=== PATIENT | male | born 1970 | race Caucasian/White ===

== ENCOUNTER → 2017-12-25 | Outpatient (CLI) | payer BC ==
[2017-12-25 08:54] LABS: Basophils % (A) 1 %; Eosinophils # (A) 0.5 k/uL (0-0.7); Eosinophils % (A) 6 %; HCT 50.1 % (39.0-53.0); HGB 16.6 gm/dL (13.0-17.5); Lymphocytes % (A) 24 %; MCH 31.2 pg (25.0-35.0); MCHC 33.1 g/dL (31.0-37.0); MCV 94.2 fL (80.0-100.0); Mean Platelet Volume 6.9; Monocytes # (A) 0.6 k/uL (0-1.0); Monocytes % (A) 7 %; Neutrophils # (A) 4.8 k/uL (1.3-7.7); Neutrophils % (A) 60 %; Platelet Count 242 k/uL (150-450); RBC 5.32 m/uL (4.30-5.90); RDW 13.1 % (11.5-15.5); WBC 8.1 k/uL (3.8-10.6)
[2017-12-25 09:17] LABS: ALT 48 U/L (21-72); AST 27 U/L (17-59); Albumin 4.2 g/dL (3.5-5.0); Alkaline Phosphatase 98 U/L (38-126); Anion Gap 9 mmol/L; Blood Urea Nitrogen 17 mg/dL (9-20); Calcium 10.1 mg/dL (8.4-10.2); Carbon Dioxide 27 mmol/L (22-30); Chloride 106 mmol/L (98-107); Cholesterol 185 mg/dL (<200); Glucose 112 mg/dL (74-99); HDL Cholesterol 44 mg/dL (40-60); LDL Cholesterol,Calculated 94 mg/dL (0-99); Potassium 4.6 mmol/L (3.5-5.1); Sodium 142 mmol/L (137-145); Total Bilirubin 0.3 mg/dL (0.2-1.3); Total Protein 6.9 g/dL (6.3-8.2); Triglycerides 234 mg/dL (<150)
[2017-12-25 18:37] LABS: Hemoglobin A1C 5.8 % (4.0-6.0)
== END | disposition home or self-care (01) ==
LOC: LABWHC1 08:22
PROVIDERS: ATTEND Family Medicine
DX: L50.8 Other urticaria (principal); R73.01 Impaired fasting glucose; J45.20 Mild intermittent asthma, uncomplicated; E78.5 Hyperlipidemia, unspecified
CPT/HCPCS: 36415; 80053; 80061; 82607; 83036; 84443; 85025

== ENCOUNTER 2018-02-12 10:38 | Observation (INO) | payer BC ==
[2018-02-12] MEDS ORDERED: NITROGLYCERIN OINT 1 INCH/GM PACKET TOPICAL STA (11:00)
[2018-02-12] MEDS ORDERED: ASPIRIN 81 MG PO STA (11:00)
--- NOTE | 2018-02-12 11:03 | ED ---
General Adult HPI - General Chief complaint: Chest Pain Stated complaint: chest tightness Time Seen by Provider: 02/12/18 10:56 Source: patient, RN notes reviewed Mode of arrival: ambulatory Limitations: no limitations - History of Present Illness Initial comments: Patient is a pleasant 47-year-old male presenting to the emergency Department with complaints of chest discomfort. Onset of symptoms was around 10 this morning. Patient has discomfort in his chest described as tightness. There is no radiation. Patient does have some associated dyspnea and nausea and sweating. No history of similar symptoms previously. Patient was at rest at onset. Discomfort is somewhat severe rated 7/10. - Related Data Home Medications Medication Instructions Recorded Confirmed Albuterol Sulfate [Proair Hfa] 1 - 2 puff INHALATION RT-Q6H PRN 02/12/18 Atorvastatin [Lipitor] 20 mg PO HS 02/12/18 02/12/18 Budesonide/Formoterol Fumarate 2 puff INHALATION RT-BID 02/12/18 02/12/18 [Symbicort 160-4.5 Mcg Inhaler] HYDROcodone/APAP 10-325MG [[place] 1 tab PO TID PRN 02/12/18 02/12/18 10-325] Montelukast [Singulair] 10 mg PO HS 02/12/18 02/12/18 Omalizumab [Xolair] 375 mg SQ Q14D 02/12/18 02/12/18 Allergies Allergy/AdvReac Type Severity Reaction Status Date / Time No Known Allergies Allergy Verified 02/12/18 11:13 Review of Systems ROS Statement: Those systems with pertinent positive or pertinent negative responses have been documented in the HPI. ROS Other: All systems not noted in ROS Statement are negative. Constitutional: Denies: fever Eyes: Denies: eye pain ENT: Denies: ear pain Respiratory: Reports: dyspnea. Denies: cough Cardiovascular: Reports: chest pain Endocrine: Denies: fatigue Gastrointestinal: Reports: nausea. Denies: abdominal pain Genitourinary: Denies: dysuria Musculoskeletal: Denies: back pain Skin: Denies: rash Neurological: Denies: weakness Past Medical History Past Medical History: Asthma, Hyperlipidemia Additional Past Medical History / Comment(s): pre-diabetic History of Any Multi-Drug Resistant Organisms: None Reported Past Surgical History: Appendectomy, Cholecystectomy Past Psychological History: No Psychological Hx Reported Smoking Status: Current every day smoker Past Alcohol Use History: Occasional Past Drug Use History: None Reported General Exam Limitations: no limitations General appearance: alert, in no apparent distress Head exam: Present: atraumatic Eye exam: Present: normal appearance, PERRL ENT exam: Present: normal oropharynx Neck exam: Present: normal inspection Respiratory exam: Present: normal lung sounds bilaterally. Absent: chest wall tenderness Cardiovascular Exam: Present: regular rate, normal rhythm, normal heart sounds Expanded Peripheral pulses: 2+: Radial (R), Radial (L), Dorsalis Pedis (R), Dorsalis Pedis (L) GI/Abdominal exam: Present: soft. Absent: tenderness Extremities exam: Present: normal inspection. Absent: pedal edema, calf tenderness Neurological exam: Present: alert Psychiatric exam: Present: normal affect, normal mood Skin exam: Present: normal color Course Vital Signs 02/12/18 02/12/18 02/12/18 10:45 10:58 11:29 Temperature 97.9 F Pulse Rate 65 65 Pulse Rate [ 55 L Sweet Dough Mixer ] Respiratory 18 16 Rate Blood Pressure 127/76 125/68 O2 Sat by Pulse 99 98 Oximetry EKG Findings - EKG Comments: EKG Findings:: Sinus bradycardia 54. [place] 156. QRS 110. QT 420. QTc 405. Normal axis. Incomplete right bundle-branch block. No acute ST change. Medical Decision Making - Medical Decision Making Patient reevaluated and resting comfortably in bed. Discomfort has improved to approximately 3/10. Patient updated on results and plan. Case was discussed in detail with Dr. Zimmer, who will admit her patient with cardiology consult and echo and subcutaneous heparin. - Lab Data Result diagrams: 02/12/18 10:50 02/12/18 10:50 Lab Results 02/12/18 02/12/18 02/12/18 Range/Units 10:50 10:50 10:50 WBC 10.9 H (3.8-10.6) k/uL RBC 5.45 (4.30-5.90) m/uL Hgb 17.0 (13.0-17.5) gm/dL Hct 50.8 (39.0-53.0) % MCV 93.2 (80.0-100.0) fL MCH 31.2 (25.0-35.0) pg MCHC 33.5 (31.0-37.0) g/dL RDW 12.8 (11.5-15.5) % Plt Count 264 (150-450) k/uL Neutrophils % 63 % Lymphocytes % 22 % Monocytes % 8 % Eosinophils % 4 % Basophils % 1 % Neutrophils # 6.9 (1.3-7.7) k/uL Lymphocytes # 2.4 (1.0-4.8) k/uL Monocytes # 0.9 (0-1.0) k/uL Eosinophils # 0.4 (0-0.7) k/uL Basophils # 0.1 (0-0.2) k/uL PT (9.0-12.0) sec INR (<1.2) APTT (22.0-30.0) sec D-Dimer (<0.60) mg/L FEU Sodium 139 (137-145) mmol/L Potassium 4.2 (3.5-5.1) mmol/L Chloride 106 (98-107) mmol/L Carbon Dioxide 24 (22-30) mmol/L Anion Gap 9 mmol/L BUN 17 (9-20) mg/dL Creatinine 0.80 (0.66-1.25) mg/dL Est GFR (CKD-EPI)AfAm >90 (>60 ml/min/1.73 sqM) Est GFR (CKD-EPI)NonAf >90 (>60 ml/min/1.73 sqM) Glucose 117 H (74-99) mg/dL Calcium 9.3 (8.4-10.2) mg/dL Magnesium 2.0 (1.6-2.3) mg/dL Total Bilirubin 0.7 (0.2-1.3) mg/dL AST 183 H (17-59) U/L ALT 145 H (21-72) U/L Alkaline Phosphatase 111 (38-126) U/L Total Creatine Kinase 177 H (55-170) U/L CK-MB (CK-2) 1.6 (0.0-2.4) ng/mL CK-MB (CK-2) Rel Index 0.9 Troponin I <0.012 (0.000-0.034) ng/mL Total Protein 7.1 (6.3-8.2) g/dL Albumin 4.2 (3.5-5.0) g/dL 02/12/18 Range/Units 10:50 WBC (3.8-10.6) k/uL RBC (4.30-5.90) m/uL Hgb (13.0-17.5) gm/dL Hct (39.0-53.0) % MCV (80.0-100.0) fL MCH (25.0-35.0) pg MCHC (31.0-37.0) g/dL RDW (11.5-15.5) % Plt Count (150-450) k/uL Neutrophils % % Lymphocytes % % Monocytes % % Eosinophils % % Basophils % % Neutrophils # (1.3-7.7) k/uL Lymphocytes # (1.0-4.8) k/uL Monocytes # (0-1.0) k/uL Eosinophils # (0-0.7) k/uL Basophils # (0-0.2) k/uL PT 9.8 (9.0-12.0) sec INR 1.0 (<1.2) APTT 22.8 (22.0-30.0) sec D-Dimer 0.36 (<0.60) mg/L FEU Sodium (137-145) mmol/L Potassium (3.5-5.1) mmol/L Chloride (98-107) mmol/L Carbon Dioxide (22-30) mmol/L Anion Gap mmol/L BUN (9-20) mg/dL Creatinine (0.66-1.25) mg/dL Est GFR (CKD-EPI)AfAm (>60 ml/min/1.73 sqM) Est GFR (CKD-EPI)NonAf (>60 ml/min/1.73 sqM) Glucose (74-99) mg/dL Calcium (8.4-10.2) mg/dL Magnesium (1.6-2.3) mg/dL Total Bilirubin (0.2-1.3) mg/dL AST (17-59) U/L ALT (21-72) U/L Alkaline Phosphatase (38-126) U/L Total Creatine Kinase (55-170) U/L CK-MB (CK-2) (0.0-2.4) ng/mL CK-MB (CK-2) Rel Index Troponin I (0.000-0.034) ng/mL Total Protein (6.3-8.2) g/dL Albumin (3.5-5.0) g/dL - Radiology Data Radiology results: image reviewed (Chest x-ray shows no acute process) Disposition Clinical Impression: Chest pain Disposition: ADMITTED IP TO THIS HOSP Is patient prescribed a controlled substance at d/c from ED?: No Referrals: Linda Zimmer MD [Primary Care Provider] - 1-2 days Decision Time: 12:38
[2018-02-12 11:13] LABS: Basophils # (A) 0.1 k/uL (0-0.2); Basophils % (A) 1 %; Eosinophils # (A) 0.4 k/uL (0-0.7); Eosinophils % (A) 4 %; HCT 50.8 % (39.0-53.0); Lymphocytes # (A) 2.4 k/uL (1.0-4.8); Lymphocytes % (A) 22 %; MCH 31.2 pg (25.0-35.0); MCHC 33.5 g/dL (31.0-37.0); MCV 93.2 fL (80.0-100.0); Mean Platelet Volume 7.2; Monocytes # (A) 0.9 k/uL (0-1.0); Monocytes % (A) 8 %; Neutrophils # (A) 6.9 k/uL (1.3-7.7); Neutrophils % (A) 63 %; Platelet Count 264 k/uL (150-450); RBC 5.45 m/uL (4.30-5.90); RDW 12.8 % (11.5-15.5); WBC 10.9 k/uL (3.8-10.6)
[2018-02-12] MEDS ORDERED: NITROGLYCERIN SL TABS 0.4 MG TAB SUBLINGUAL STA (11:21)
--- NOTE | 2018-02-12 11:23 | XR ---
EXAMINATION TYPE: XR chest 2V DATE OF EXAM: 02/12/2018 HISTORY: Chest Pain. REFERENCE: NONE. FINDINGS: The lungs are clear. Pleural space are clear. The heart is not enlarged. IMPRESSION: NORMAL CHEST.
[2018-02-12 11:25] LABS: ALT 145 U/L (21-72); AST 183 U/L (17-59); Albumin 4.2 g/dL (3.5-5.0); Alkaline Phosphatase 111 U/L (38-126); Anion Gap 9 mmol/L; Blood Urea Nitrogen 17 mg/dL (9-20); Calcium 9.3 mg/dL (8.4-10.2); Carbon Dioxide 24 mmol/L (22-30); Chloride 106 mmol/L (98-107); Glucose 117 mg/dL (74-99); Potassium 4.2 mmol/L (3.5-5.1); Sodium 139 mmol/L (137-145); Total Bilirubin 0.7 mg/dL (0.2-1.3); Total Protein 7.1 g/dL (6.3-8.2)
[2018-02-12 11:28] LABS: D-Dimer 0.36 mg/L FEU (<0.60); Partial Thromboplastin Time 22.8 sec (22.0-30.0); Prothrombin Time 9.8 sec (9.0-12.0)
[2018-02-12 11:38] LABS: Creatine Kinase 177 U/L (55-170)
[2018-02-12 11:49] LABS: Creatine Kinase MB 1.6 ng/mL (0.0-2.4); Troponin I <0.012 ng/mL (0.000-0.034)
[2018-02-12] MEDS ORDERED: NITROGLYCERIN SL TABS 0.4 MG TAB SUBLINGUAL PRN (12:38)
[2018-02-12] MEDS: HYDROcodone/APAP 10-325MG 1 EACH TAB PO PRN ×2 (15:47→23:07)
[2018-02-12] MEDS: HEPARIN SODIUM,PORCINE 5,000 UNIT/ML 1 ML VIAL SQ SCH ×2 (16:29→23:08)
[2018-02-12 17:14] LABS: Creatine Kinase 131 U/L (55-170)
[2018-02-12 17:27] LABS: Creatine Kinase MB 1.2 ng/mL (0.0-2.4); Troponin I <0.012 ng/mL (0.000-0.034)
--- NOTE | 2018-02-12 18:53 | P.HPIM ---
History of Present Illness H&P Date: 02/12/18 Chief Complaint: chest pain This is a 47-year-old pleasant gentleman well known to my practice. He has underlying history of mild persistent asthma on Xolair, hyperlipidemia, chronic idiopathic urticaria, and ingrown toenail with recent nail surgery done with wedge resection and ablation performed by myself on 02/11/2018 in the clinic. He complains of two-week history of upper respiratory tract infection with clear sputum, no fever no chills, however he now comes into the emergency room with chest pain with pressure like with him sitting in his chest. Patient denies any wheezing, cough is improving. Chest pain started at 10 in the morning, while patient was resting in home this accompanied by nausea, lightheadedness and prickly sweats. He subsequently was seen in emergency room , EKG shows incomplete right bundle branch block with normal sinus rhythm, troponins are negative, there is no acute ST-T wave changes noted and EKG. Patient was subsequently admitted for the chest pain, no prior history of CAD in the past no recent cardiac workup including stress test or echocardiogram Review of Systems Constitutional: Reports as per HPI, Denies anorexia, Denies chills, Denies chronic headaches, Denies chronic pain, Denies daytime sleepiness, Denies fatigue, Denies fever, Denies lethargy, Denies malaise, Denies night sweats, Denies poor appetite, Denies sweats, Denies weakness, Denies weight gain, Denies weight loss Ears, nose, mouth and throat: Reports as per HPI Cardiovascular: Reports as per HPI, Reports chest pain, Denies claudication, Denies decreased exercise tolerance, Denies dyspnea on exertion, Denies edema, Denies high blood pressure, Denies irregular heart beat, Denies leg edema, Denies lightheadedness, Denies orthopnea, Denies palpitations, Denies paroxysmal nocturnal dyspnea, Denies phlebitis, Denies rapid heart beat, Denies shortness of breath, Denies syncope Respiratory: Reports as per HPI, Reports cough, Denies congestion, Denies cough with sputum, Denies dyspnea, Denies excessive sputum, Denies hemoptysis, Denies home oxygen, Denies pain, Denies pain on inspiration, Denies pleurisy, Denies respiratory infections, Denies sleep apnea, Denies snoring, Denies wheezing Gastrointestinal: Reports as per HPI, Denies abdominal pain, Denies belching, Denies bloating, Denies BRBPR, Denies change in bowel habits, Denies coffee ground emesis, Denies constipation, Denies diarrhea, Denies dyspepsia, Denies early satiety, Denies excessive gas, Denies heartburn, Denies hematemesis, Denies hematochezia, Denies indigestion, Denies jaundice, Denies lactose intolerance, Denies loss of appetite, Denies melena, Denies nausea, Denies vomiting Genitourinary: Reports as per HPI, Denies decreased libido, Denies difficulties fathering child, Denies discharge, Denies dysuria, Denies erectile dysfunction, Denies flank pain, Denies genital pain, Denies genital sores, Denies hematuria, Denies impotence, Denies incontinence, Denies kidney stones, Denies nocturia, Denies polyuria, Denies testicular lump, Denies testicular pain, Denies urinary frequency, Denies urinary hesitancy, Denies urinary retention Musculoskeletal: Reports as per HPI, Denies arm numbness/tingling, Denies atrophy, Denies fractures, Denies frequent falls, Denies gait dysfunction, Denies hot joints, Denies leg numbness/tingling, Denies limitation of motion, Denies loss of height, Denies low back pain, Denies morning stiffness, Denies muscle cramps, Denies muscle weakness, Denies myalgias, Denies neck pain, Denies neck stiffness, Denies prior amputations, Denies redness of joints, Denies shooting arm pain, Denies shooting leg pain Integumentary: Reports as per HPI, Denies acne, Denies boils, Denies brittle nails, Denies change in hair/nails, Denies color changes, Denies darkening of skin, Denies depigmentation, Denies dryness, Denies foot/leg ulcers, Denies growths, Denies hirsutism, Denies lesions, Denies onychomycosis, Denies pruritus , Denies rash, Denies sores, Denies striae, Denies unusual bruising, Denies wounds Neurological: Reports as per HPI, Denies aphasia, Denies ataxia, Denies balance difficulties, Denies burning pain, Denies change in mentation, Denies change in smell/taste, Denies change in speech, Denies confusion, Denies convulsions, Denies double vision, Denies gait dysfunction, Denies head injury, Denies headaches, Denies hearing difficulties, Denies lack of coordination, Denies loss of vision, Denies memory loss, Denies migraines, Denies motor disturbance, Denies numbness, Denies paralysis, Denies paresthesias, Denies seizures, Denies sensory deficit, Denies spasticity, Denies syncope, Denies tic, Denies tingling , Denies transient paralysis, Denies tremors, Denies vertigo, Denies weakness, Denies visual changes Psychiatric: Reports as per HPI Endocrine: Reports as per HPI, Denies cold intolerance, Denies deepening of the voice, Denies excessive sweating, Denies excessive thirst, Denies fatigue, Denies flushing, Denies heat intolerance, Denies high blood sugars, Denies increase in ring/shoe/hat size, Denies low blood sugars, Denies nocturia, Denies palpitations, Denies polydipsia, Denies polyphagia, Denies polyuria, Denies proptosis, Denies recent glucocorticoid use, Denies thyroid mass, Denies weight change Hematologic/Lymphatic: Reports as per HPI, Denies easy bleeding, Denies easy bruising, Denies lymphadenopathy, Denies lymphedema, Denies thrombophilia Allergic/Immunologic: Reports as per HPI, Reports allergic rhinitis, Reports seasonal allergies, Reports urticaria Past Medical History Past Medical History: Asthma, Hyperlipidemia Additional Past Medical History / Comment(s): pre-diabetic History of Any Multi-Drug Resistant Organisms: None Reported Past Surgical History: Appendectomy, Cholecystectomy Additional Past Surgical History / Comment(s): part of nailbed removed on bilateral Great toe for ingrown toenails on 02/11/18 Past Psychological History: No Psychological Hx Reported Smoking Status: Current every day smoker Past Alcohol Use History: Occasional Past Drug Use History: None Reported - Past Family History Father History Unknown: Yes (mother from accidental from alcoholism and carbon monoxide poisoning in her car, father has diabetes mellitus no brothers no sisters, 2 daughters healthy no signs) Medications and Allergies Home Medications Medication Instructions Recorded Confirmed Type Albuterol Sulfate [Proair Hfa] 1 - 2 puff INHALATION RT-Q6H PRN 02/12/18 History Atorvastatin [Lipitor] 20 mg PO HS 02/12/18 02/12/18 History Budesonide/Formoterol Fumarate 2 puff INHALATION RT-BID 02/12/18 02/12/18 History [Symbicort 160-4.5 Mcg Inhaler] HYDROcodone/APAP 10-325MG [[place] 1 tab PO TID PRN 02/12/18 02/12/18 History 10-325] Montelukast [Singulair] 10 mg PO HS 02/12/18 02/12/18 History Omalizumab [Xolair] 375 mg SQ Q14D 02/12/18 02/12/18 History Allergies Allergy/AdvReac Type Severity Reaction Status Date / Time No Known Allergies Allergy Verified 02/12/18 11:13 Physical Exam Vitals: Vital Signs Temp Pulse Pulse Pulse Resp BP BP 02/12/18 13:37 02/12/18 13:07 97.5 F L 49 L 16 131/68 02/12/18 12:57 97.7 F 59 L 18 120/74 02/12/18 11:29 65 16 125/68 02/12/18 10:58 55 L 02/12/18 10:45 97.9 F 65 18 127/76 Pulse Ox 02/12/18 13:37 98 02/12/18 13:07 99 02/12/18 12:57 98 02/12/18 11:29 98 02/12/18 10:58 02/12/18 10:45 99 Intake and Output 02/11/18 02/12/18 02/12/18 22:59 06:59 14:59 Other: Voiding Method Toilet Weight 102.1 kg - Constitutional General appearance: average body habitus, cooperative, no acute distress - EENT Eyes: anicteric sclerae, EOMI, PERRLA, dentition normal, normal appearance ENT: hearing grossly normal, NA/AT, normal oropharynx - Respiratory Respiratory: bilateral: CTA, negative: dullness, rales, rhonchi, wheezing, prolonged expiration, prolonged inspiration - Cardiovascular Rhythm: regular Heart sounds: normal: S1, S2 Abnormal Heart Sounds: no systolic murmur, no diastolic murmur, no rub, no S3 Gallop, no S4 Gallop, no click, no other - Gastrointestinal General gastrointestinal: soft - Integumentary Integumentary: decreased turgor, normal - Neurologic Neurologic: CNII-XII intact - Musculoskeletal Musculoskeletal: gait normal, strength equal bilaterally - Psychiatric Psychiatric: A&O x's 3, appropriate affect, intact judgment & insight Results CBC & Chem 7: 02/12/18 10:50 02/12/18 10:50 Labs: Abnormal Lab Results - Last 24 Hours (Table) 02/12/18 02/12/18 02/12/18 Range/Units 10:50 10:50 10:50 WBC 10.9 H (3.8-10.6) k/uL Glucose 117 H (74-99) mg/dL AST 183 H (17-59) U/L ALT 145 H (21-72) U/L Total Creatine Kinase 177 H (55-170) U/L Laboratory Results WBC 10.9 k/uL (3.8-10.6) H 02/12/18 10:50 RBC 5.45 m/uL (4.30-5.90) 02/12/18 10:50 Hgb 17.0 gm/dL (13.0-17.5) 02/12/18 10:50 Hct 50.8 % (39.0-53.0) 02/12/18 10:50 MCV 93.2 fL (80.0-100.0) 02/12/18 10:50 MCH 31.2 pg (25.0-35.0) 02/12/18 10:50 MCHC 33.5 g/dL (31.0-37.0) 02/12/18 10:50 RDW 12.8 % (11.5-15.5) 02/12/18 10:50 Plt Count 264 k/uL (150-450) 02/12/18 10:50 Neutrophils % 63 % 02/12/18 10:50 Lymphocytes % 22 % 02/12/18 10:50 Monocytes % 8 % 02/12/18 10:50 Eosinophils % 4 % 02/12/18 10:50 Basophils % 1 % 02/12/18 10:50 Neutrophils # 6.9 k/uL (1.3-7.7) 02/12/18 10:50 Lymphocytes # 2.4 k/uL (1.0-4.8) 02/12/18 10:50 Monocytes # 0.9 k/uL (0-1.0) 02/12/18 10:50 Eosinophils # 0.4 k/uL (0-0.7) 02/12/18 10:50 Basophils # 0.1 k/uL (0-0.2) 02/12/18 10:50 PT 9.8 sec (9.0-12.0) 02/12/18 10:50 INR 1.0 (<1.2) 02/12/18 10:50 APTT 22.8 sec (22.0-30.0) 02/12/18 10:50 D-Dimer 0.36 mg/L FEU (<0.60) 02/12/18 10:50 Sodium 139 mmol/L (137-145) 02/12/18 10:50 Potassium 4.2 mmol/L (3.5-5.1) 02/12/18 10:50 Chloride 106 mmol/L (98-107) 02/12/18 10:50 Carbon Dioxide 24 mmol/L (22-30) 02/12/18 10:50 Anion Gap 9 mmol/L 02/12/18 10:50 BUN 17 mg/dL (9-20) 02/12/18 10:50 Creatinine 0.80 mg/dL (0.66-1.25) 02/12/18 10:50 Est GFR (CKD-EPI)AfAm >90 (>60 ml/min/1.73 sqM) 02/12/18 10:50 Est GFR (CKD-EPI)NonAf >90 (>60 ml/min/1.73 sqM) 02/12/18 10:50 Glucose 117 mg/dL (74-99) H 02/12/18 10:50 Calcium 9.3 mg/dL (8.4-10.2) 02/12/18 10:50 Magnesium 2.0 mg/dL (1.6-2.3) 02/12/18 10:50 Total Bilirubin 0.7 mg/dL (0.2-1.3) 02/12/18 10:50 AST 183 U/L (17-59) H 02/12/18 10:50 ALT 145 U/L (21-72) H 02/12/18 10:50 Alkaline Phosphatase 111 U/L (38-126) 02/12/18 10:50 Total Creatine Kinase 131 U/L (55-170) 02/12/18 16:46 CK-MB (CK-2) 1.2 ng/mL (0.0-2.4) 02/12/18 16:46 CK-MB (CK-2) Rel Index 0.9 02/12/18 16:46 Troponin I <0.012 ng/mL (0.000-0.034) 02/12/18 16:46 Total Protein 7.1 g/dL (6.3-8.2) 02/12/18 10:50 Albumin 4.2 g/dL (3.5-5.0) 02/12/18 10:50 Lipase 125 U/L (23-300) 02/12/18 10:50 Thrombosis Risk Factor Assmnt - Choose All That Apply Any of the Below Risk Factors Present?: Yes Each Factor Represents 1 point: Age 41-60 years Thrombosis Risk Factor Assessment Total Risk Factor Score: 1 Thrombosis Risk Factor Assessment Level: Low Risk Assessment and Plan Plan: 1. Chest pain possibility of unstable angina with abnormal EKG on presentation mainly from incomplete right bundle branch block, with history of risk factors to include smoking and hyperlipidemia. Patient would be monitored for the next 23 hours with serial cardiac biomarkers troponins and EKG. Cardiology to see in consult. Patient is on Nitropaste, and subcu heparin, and aspirin 2. Upper respiratory tract infection with costochondritis secondary to cough, could aggravate the above chest pain, on maintenance Symbicort Singulair and Xolair. We'll going to provide nebulized albuterol and Atrovent along with budesonide no oral antibiotics needed symptoms are resolving patient might need a few doses of steroids while here. 3. Chronic idiopathic urticaria on Xolair 4. History of mild persistent asthma on maintenance Xolair Symbicort and Singulair possible could be aggravated with mild exacerbation secondary to recent upper respiratory infection 5. Hyperlipidemia on Lipitor 20 6. Tobacco use, counseled regarding permanent tobacco cessation 7. Transaminitis acute, new, patient would have hepatitis panel, monitor liver tests, and abdominal ultrasound lipase 8. GI prophylaxis with Pepcid, DVT prophylaxis with Lovenox 9. Headache related to Nitropaste use, patient has hydrocodone and aspirin 10. Recent nail resection wedge on bilateral great toes on 02/11/2018, doing okay, short-term use of Eucha medication dispensed a 24
[2018-02-12] MEDS: NITROGLYCERIN OINT 1 INCH/GM PACKET TOPICAL SCH (19:32)
[2018-02-12] MEDS ORDERED: ACETAMINOPHEN TAB 325 MG TAB PO PRN (19:58)
[2018-02-12] MEDS: ONDANSETRON 4 MG/2 ML VIAL IVP PRN (20:17)
[2018-02-12] MEDS: IPRATROPIUM-ALBUTEROL 3 ML NEB INHALATION PRN (20:25)
[2018-02-12] MEDS: BUDESONIDE 0.5 MG/2 ML NEBU INHALATION SCH (20:25)
[2018-02-12] MEDS ORDERED: MONTELUKAST 10 MG TAB PO SCH (21:00)
[2018-02-12] MEDS ORDERED: ATORVASTATIN 20 MG TAB PO SCH (21:00)
[2018-02-12 22:50] LABS: Hepatitis A Antibody IgM Non-Reactive (Non-Reactive); Hepatitis B Core IgM Non-Reactive (Non-Reactive)
[2018-02-12 23:33] LABS: Creatine Kinase 114 U/L (55-170)
[2018-02-12 23:47] LABS: Creatine Kinase MB 1.1 ng/mL (0.0-2.4); Troponin I <0.012 ng/mL (0.000-0.034)
[2018-02-13] MEDS: NITROGLYCERIN OINT 1 INCH/GM PACKET TOPICAL SCH ×2 (02:17→05:10)
[2018-02-13 03:02] LABS: Cholesterol 146 mg/dL (<200); HDL Cholesterol 45 mg/dL (40-60); LDL Cholesterol,Calculated 62 mg/dL (0-99); Triglycerides 193 mg/dL (<150)
--- NOTE | 2018-02-13 07:43 | US ---
EXAMINATION TYPE: US abdomen limited DATE OF EXAM: 02/13/2018 COMPARISON: Previous study dated 06/01/2011. CLINICAL HISTORY: transaminitis. Abnormal labs, GB removed EXAM MEASUREMENTS: Liver Length: 17.4 cm CBD: 0.5 cm Right Kidney: 12.0 x 5.2 x 6.0 cm Pancreas: 3mm duct visualized, tail obscured by overlying bowel gas Liver: Upper limits of normal for size, probable hemangioma right anterior lobe= 1.1 x 1.0 x 0.6 cm Gallbladder: Surgically absent Evidence for sonographic Beverly's sign: No CBD: wnl Right Kidney: wnl, lower pole gassed out Limited views of the pancreas are unremarkable. The liver is normal in size without biliary dilatation. There is a 1.1 x 1 cm echogenic focus within the anterior aspect of the right lobe of the liver, likely representing a hemangioma. The gallbladder is been removed. The distal common hepatic duct measures 5 mm. Limited views of the right kidney are unremarkable. IMPRESSION: 1. PROBABLE HEMANGIOMA IN THE RIGHT LOBE OF THE LIVER. 2. STATUS POST CHOLECYSTECTOMY.
[2018-02-13] MEDS: IPRATROPIUM-ALBUTEROL 3 ML NEB INHALATION PRN (08:17)
[2018-02-13] MEDS: BUDESONIDE 0.5 MG/2 ML NEBU INHALATION SCH (08:17)
[2018-02-13 08:28] VITALS: RESP 18
[2018-02-13] MEDS ORDERED: ASPIRIN 325 MG TAB PO SCH (09:00)
[2018-02-13] MEDS: HYDROcodone/APAP 10-325MG 1 EACH TAB PO PRN (09:21)
--- NOTE | 2018-02-13 10:18 | P.CRDCN ---
<Chanda Hickman - Last Filed: 02/13/18 10:17> History of Present Illness History of present illness: This is a pleasant 47 year old male past medical history significant for chronic daily nicotine dependence, asthma and dyslipidemia. He denies history of coronary artery disease, hypertension and states that he is prediabetic. He is never seen a dental appliance mechanic for any reason. We have been asked to see him in consultation for symptoms of chest pain. He said yesterday morning after he was working on his washer he started feeling a heavy pressure sensation in the lower anterior chest wall radiating from right to left associated with shortness of breath, nausea and vomiting. He denies radiation of the pain to the arm, back, neck or jaw. He denies associated dizziness, palpitations or diaphoresis. The intensity of the symptoms persisted for approximately one hour and seemed to slightly subside after coming to the hospital and having a nitro paste applied. He continued to have chest discomfort mildly throughout the day with no specific alleviating or aggravating factors. He went to bed last night around 9 PM and woke up this morning with no chest pain. He had been following with his primary care physician for what he thought was an upper respiratory infection for the previous couple of weeks. He is currently seen resting in bed comfortably with daughter and at the bedside denies symptoms of chest pain, shortness of breath, dizziness, palpitations, nausea or vomiting. He also denies cough, fever/chills, PND or orthopnea. EKG reveals right bundle branch block pattern with no acute ST or T wave male is noted. Chest x-ray negative for an acute cardiopulmonary process. Laboratory data reviewed, WBC 10.9, hemoglobin 17, platelets 264, d-dimer 0.36, potassium 4.2, creatinine 0.8, AST 183, PLT 145, magnesium 2.0, cardiac enzymes negative 3, LDL 62. Current cardiac medications include atorvastatin 20 mg daily. Abdominal ultrasound obtained reveals probable hemangioma in the right lobe of the liver status post cholecystectomy. At the time of my exam: CONSTITUTIONAL: Denies fever. Denies chills. EYES: Denies blurred vision. Denies vision changes. Denies eye pain. EARS, NOSE, MOUTH & THROAT: Denies headache. Denies sore throat. Denies ear pain. CARDIOVASCULAR: Denies chest pain. Denies shortness of breath. Denies orthopnea. Denies PND. Denies palpitations. RESPIRATORY: Denies cough. GASTROINTESTINAL: Denies abdominal pain. Denies diarrhea. Denies constipation. Denies nausea. Denies vomiting. MUSCULOSKELETAL: Denies myalgias. INTEGUMENTARY: Denies pruitis. Denies rash. NEUROLOGIC: Denies numbness. Denies tingling. Denies weakness. PSYCHIATRIC: Denies anxiety. Denies depression. ENDOCRINE: Denies fatigue. Denies weight change. Denies polydipsia. Denies polyurina. GENITOURINARY: Denies burning, hematuria or urgency with micturation. HEMATOLOGIC: Denies history of anemia. Denies bleeding. Blood pressure 120/69 heart rate 52 afebrile maintaining oxygen saturation on room air GENERAL: This is a 47-year-old male in no apparent distress at the time of my examination. HEENT: Head is atraumatic, normocephalic. Pupils are equal, round. Sclerae anicteric. Conjunctivae are clear. Mucous membranes of the mouth are moist. Neck is supple. There is no jugular venous distention. No carotid bruit is heard. LUNGS: Clear to auscultation no wheezes, rales or rhonchi. No chest wall tenderness is noted on palpation or with deep breathing. HEART: Regular rate and rhythm without murmurs, rubs or gallops. S1 and S2 heard. ABDOMEN: Soft, nontender. Bowel sounds are heard. No organomegaly noted. EXTREMITIES: No evidence of peripheral edema and no calf tenderness noted. VASCULAR: Radial and dorsalis pedis pulses palpated, no evidence of clubbing. NEUROLOGIC: Patient is awake, alert and oriented x3. ASSESSMENT Chest pain, atypical. An acute coronary event has some ruled out with no EKG evidence of ischemia and negative cardiac enzymes. Dyslipidemia Chronic nicotine dependence Elevated liver enzymes PLAN An acute coronary event has some ruled out with no EKG evidence of ischemia and negative cardiac enzymes. Stable from a cardiac perspective. May go home and see Dr. Segal in the office for further outpatient testing. Thank you kindly for this consultation. Nurse Practitioner note has been reviewed, I agree with a documented findings and plan of care. Patient was seen and examined. Past Medical History Past Medical History: Asthma, Hyperlipidemia Additional Past Medical History / Comment(s): pre-diabetic History of Any Multi-Drug Resistant Organisms: None Reported Past Surgical History: Appendectomy, Cholecystectomy Additional Past Surgical History / Comment(s): part of nailbed removed on bilateral Great toe for ingrown toenails on 02/11/18 Past Psychological History: No Psychological Hx Reported Smoking Status: Current every day smoker Past Alcohol Use History: Occasional Past Drug Use History: None Reported - Past Family History Father History Unknown: Yes (mother from accidental from alcoholism and carbon monoxide poisoning in her car, father has diabetes mellitus no brothers no sisters, 2 daughters healthy no signs) Medications and Allergies Home Medications Medication Instructions Recorded Confirmed Type Albuterol Sulfate [Proair Hfa] 1 - 2 puff INHALATION RT-Q6H PRN 02/12/18 History Atorvastatin [Lipitor] 20 mg PO HS 02/12/18 02/12/18 History Budesonide/Formoterol Fumarate 2 puff INHALATION RT-BID 02/12/18 02/12/18 History [Symbicort 160-4.5 Mcg Inhaler] HYDROcodone/APAP 10-325MG [[place] 1 tab PO TID PRN 02/12/18 02/12/18 History 10-325] Montelukast [Singulair] 10 mg PO HS 02/12/18 02/12/18 History Omalizumab [Xolair] 375 mg SQ Q14D 02/12/18 02/12/18 History Allergies Allergy/AdvReac Type Severity Reaction Status Date / Time No Known Allergies Allergy Verified 02/12/18 11:13 Physical Exam Vitals: Vital Signs Temp Pulse Pulse Pulse Resp BP BP 02/13/18 08:28 62 02/13/18 08:17 62 02/13/18 08:00 98.2 F 69 18 02/13/18 03:50 16 02/13/18 03:37 98.3 F 52 L 16 02/13/18 00:00 97.9 F 50 L 16 02/12/18 20:36 50 L 02/12/18 20:27 50 L 02/12/18 20:00 18 02/12/18 19:19 97.9 F 50 L 16 125/67 02/12/18 16:00 97.7 F 50 L 18 02/12/18 13:37 02/12/18 13:07 97.5 F L 49 L 16 02/12/18 12:57 97.7 F 59 L 18 120/74 02/12/18 11:29 65 16 125/68 02/12/18 10:58 55 L 02/12/18 10:45 97.9 F 65 18 127/76 BP Pulse Ox 02/13/18 08:28 02/13/18 08:17 02/13/18 08:00 121/70 98 02/13/18 03:50 02/13/18 03:37 120/69 98 02/13/18 00:00 118/73 97 02/12/18 20:36 02/12/18 20:27 02/12/18 20:00 02/12/18 19:19 98 02/12/18 16:00 121/64 99 02/12/18 13:37 98 02/12/18 13:07 131/68 99 02/12/18 12:57 98 02/12/18 11:29 98 02/12/18 10:58 02/12/18 10:45 99 Intake and Output 02/12/18 02/13/18 02/13/18 22:59 06:59 14:59 Other: Voiding Method Toilet Toilet Toilet # Voids 1 1 Results 02/12/18 10:50 02/12/18 10:50 Cardiac Enzymes 02/12/18 02/12/18 02/12/18 Range/Units 10:50 10:50 16:46 AST 183 H (17-59) U/L CK-MB (CK-2) 1.6 1.2 (0.0-2.4) ng/mL Troponin I <0.012 <0.012 (0.000-0.034) ng/mL 02/12/18 Range/Units 22:50 AST (17-59) U/L CK-MB (CK-2) 1.1 (0.0-2.4) ng/mL Troponin I <0.012 (0.000-0.034) ng/mL Coagulation 02/12/18 Range/Units 10:50 PT 9.8 (9.0-12.0) sec APTT 22.8 (22.0-30.0) sec Lipids 02/12/18 Range/Units 10:50 Triglycerides 193 H (<150) mg/dL Cholesterol 146 (<200) mg/dL HDL Cholesterol 45 (40-60) mg/dL CBC 02/12/18 Range/Units 10:50 WBC 10.9 H (3.8-10.6) k/uL RBC 5.45 (4.30-5.90) m/uL Hgb 17.0 (13.0-17.5) gm/dL Hct 50.8 (39.0-53.0) % Plt Count 264 (150-450) k/uL Comprehensive Metabolic Panel 02/12/18 Range/Units 10:50 Sodium 139 (137-145) mmol/L Potassium 4.2 (3.5-5.1) mmol/L Chloride 106 (98-107) mmol/L Carbon Dioxide 24 (22-30) mmol/L BUN 17 (9-20) mg/dL Creatinine 0.80 (0.66-1.25) mg/dL Glucose 117 H (74-99) mg/dL Calcium 9.3 (8.4-10.2) mg/dL AST 183 H (17-59) U/L ALT 145 H (21-72) U/L Alkaline Phosphatase 111 (38-126) U/L Total Protein 7.1 (6.3-8.2) g/dL Albumin 4.2 (3.5-5.0) g/dL Current Medications Generic Name Dose Route Start Last Admin Trade Name Freq PRN Reason Stop Dose Admin Acetaminophen 650 mg 02/12/18 19:58 02/12/18 20:16 Tylenol Tab PO 650 mg Q4HR PRN Administration Fever and/ or Pain Hydrocodone Bitart/Acetaminophen 1 each 02/12/18 14:19 02/13/18 09:21 [place] 10 PO 1 each TID PRN Administration Pain Albuterol/Ipratropium 3 ml 02/12/18 14:21 02/13/18 08:17 Duoneb 0.5 Mg-3 Mg/3 Ml Soln INHALATION 3 ml RT-QID PRN Administration Shortness Of Breath Or Wheezing Aspirin 325 mg 02/13/18 09:00 02/13/18 09:21 Aspirin PO 325 mg DAILY GISSELLE Administration Atorvastatin Calcium 20 mg 02/12/18 21:00 02/12/18 20:16 Lipitor PO 20 mg HS GIS[place]LE Administration Budesonide 0.5 mg 02/12/18 20:00 02/13/18 08:17 Pulmicort INHALATION 0.5 mg RT-BID [place] Administration Heparin Sodium (Porcine) 5,000 unit 02/12/18 16:00 02/12/18 23:08 Heparin SQ 5,000 unit Q8HR GIS[place]LE Administration Montelukast Sodium 10 mg 02/12/18 21:00 02/12/18 20:16 Singulair PO 10 mg HS GISSELLE Administration Nitroglycerin 1 inch 02/12/18 18:00 02/13/18 05:10 Nitro-Bid Oint TOPICAL Not Given Q6HR [facility] Nitroglycerin 0.4 mg 02/12/18 12:38 Nitrostat SUBLINGUAL Q5M PRN Chest Pain Ondansetron HCl 4 mg 02/12/18 20:00 02/12/18 20:17 Zofran IVP 4 mg Q6HR PRN Administration Nausea And Vomiting Intake and Output 02/12/18 02/13/18 02/13/18 22:59 06:59 14:59 Other: Voiding Method Toilet Toilet Toilet # Voids 1 1 02/12/18 10:50 02/12/18 10:50 <Marco Antonio Segal - Last Filed: 02/13/18 12:09> Physical Exam Vitals: Vital Signs Temp Pulse Pulse Resp BP BP BP 02/13/18 08:28 62 02/13/18 08:17 62 02/13/18 08:00 98.2 F 69 18 121/70 02/13/18 03:50 16 02/13/18 03:37 98.3 F 52 L 16 120/69 02/13/18 00:00 97.9 F 50 L 16 118/73 02/12/18 20:36 50 L 02/12/18 20:27 50 L 02/12/18 20:00 18 02/12/18 19:19 97.9 F 50 L 16 125/67 02/12/18 16:00 97.7 F 50 L 18 121/64 02/12/18 13:37 02/12/18 13:07 97.5 F L 49 L 16 131/68 02/12/18 12:57 97.7 F 59 L 18 120/74 Pulse Ox 02/13/18 08:28 02/13/18 08:17 02/13/18 08:00 98 02/13/18 03:50 02/13/18 03:37 98 02/13/18 00:00 97 02/12/18 20:36 02/12/18 20:27 02/12/18 20:00 02/12/18 19:19 98 02/12/18 16:00 99 02/12/18 13:37 98 02/12/18 13:07 99 02/12/18 12:57 98 Intake and Output 02/12/18 02/13/18 02/13/18 22:59 06:59 14:59 Other: Voiding Method Toilet Toilet Toilet # Voids 1 1 Results 02/12/18 10:50 02/12/18 10:50 Cardiac Enzymes 02/12/18 02/12/18 Range/Units 16:46 22:50 CK-MB (CK-2) 1.2 1.1 (0.0-2.4) ng/mL Troponin I <0.012 <0.012 (0.000-0.034) ng/mL Lipids 02/12/18 Range/Units 10:50 Triglycerides 193 H (<150) mg/dL Cholesterol 146 (<200) mg/dL HDL Cholesterol 45 (40-60) mg/dL Current Medications Generic Name Dose Route Start Last Admin Trade Name Freq PRN Reason Stop Dose Admin Acetaminophen 650 mg 02/12/18 19:58 02/12/18 20:16 Tylenol Tab PO 650 mg Q4HR PRN Administration Fever and/ or Pain Hydrocodone Bitart/Acetaminophen 1 each 02/12/18 14:19 02/13/18 09:21 [place] 10 PO 1 each TID PRN Administration Pain Albuterol/Ipratropium 3 ml 02/12/18 14:21 02/13/18 08:17 Duoneb 0.5 Mg-3 Mg/3 Ml Soln INHALATION 3 ml RT-QID PRN Administration Shortness Of Breath Or Wheezing Aspirin 81 mg 02/14/18 09:00 Aspirin PO DAILY GISSELLE Atorvastatin Calcium 20 mg 02/12/18 21:00 02/12/18 20:16 Lipitor PO 20 mg HS GISSELLE Administration Budesonide 0.5 mg 02/12/18 20:00 02/13/18 08:17 Pulmicort INHALATION 0.5 mg RT-BID GISSELLE Administration Heparin Sodium (Porcine) 5,000 unit 02/12/18 16:00 02/13/18 10:26 Heparin SQ 5,000 unit Q8HR GISSELLE Administration Montelukast Sodium 10 mg 02/12/18 21:00 02/12/18 20:16 Singulair PO 10 mg HS GISSELLE Administration Nitroglycerin 1 inch 02/12/18 18:00 02/13/18 05:10 Nitro-Bid Oint TOPICAL Not Given Q6HR [facility] Nitroglycerin 0.4 mg 02/12/18 12:38 Nitrostat SUBLINGUAL Q5M PRN Chest Pain Ondansetron HCl 4 mg 02/12/18 20:00 02/13/18 10:26 Zofran IVP 4 mg Q6HR PRN Administration Nausea And Vomiting Intake and Output 02/12/18 02/13/18 02/13/18 22:59 06:59 14:59 Other: Voiding Method Toilet Toilet Toilet # Voids 1 1 02/12/18 10:50 02/12/18 10:50
[2018-02-13] MEDS: HEPARIN SODIUM,PORCINE 5,000 UNIT/ML 1 ML VIAL SQ SCH (10:26)
[2018-02-13] MEDS: ONDANSETRON 4 MG/2 ML VIAL IVP PRN (10:26)
[2018-02-13 12:14] VITALS: BP 156/80; PULSE 65; TEMP 98.4
--- NOTE | 2018-02-13 15:48 | P.DS ---
Providers Date of admission: 02/12/18 12:38 Attending physician: Linda Zimmer Consults: 02/12/18 12:38 Consult Physician Urgent Consulting Provider: Marco Antonio Ohara Consult Reason/Comments: cp Do you want consulting provider notified?: Yes Primary care physician: Linda Zimmer [place] Hospital Course: This is a 47-year-old pleasant gentleman well known to my practice. He has underlying history of mild persistent asthma on Xolair, hyperlipidemia, chronic idiopathic urticaria, and ingrown toenail with recent nail surgery done with wedge resection and ablation performed by myself on 02/11/2018 in the clinic. He complains of two-week history of upper respiratory tract infection with clear sputum, no fever no chills, however he now comes into the emergency room with chest pain with pressure like with him sitting in his chest. Patient denies any wheezing, cough is improving. Chest pain started at 10 in the morning, while patient was resting in home this accompanied by nausea, lightheadedness and prickly sweats. He subsequently was seen in emergency room , EKG shows incomplete right bundle branch block with normal sinus rhythm, troponins are negative, there is no acute ST-T wave changes noted and EKG. Patient was subsequently admitted for the chest pain, no prior history of CAD in the past no recent cardiac workup including stress test or echocardiogram 02/13: Patient was seen by cardiology, and was cleared for discharge, overnight monitory forte troponins are negative, outpatient stress test, Zithromax to be given for lingering bronchitis, continue on nebulized treatments since the Symbicort, nor prednisone on discharge. Patient can take ibuprofen for costochondritis pain, advised to quit smoking permanently, patient is receptive however not committed follow-up with Dr. ohara in 1 week, outpatient stress test, echocardiogram is either pending or not done, this will be done as an outpatient Assessment and Plan Plan: 1. Chest pain atypical with costochondritis and upper respiratory tract infection ruled out myocardial infarction with abnormal EKG on presentation mainly from incomplete right bundle branch block, with history of risk factors to include smoking and hyperlipidemia. Negative screen with serial cardiac biomarkers troponins and EKG. Cardiology Dr. Gonzalez cleared for discharge 2. Upper respiratory tract infection with costochondritis secondary to cough, could aggravate the above chest pain, on maintenance Symbicort Singulair and Xolair. We'll going to provide nebulized albuterol and Atrovent along with budesonide Zithromax on discharge 3. Chronic idiopathic urticaria on Xolair patient Dr. Edwards 4. History of mild persistent asthma on maintenance Xolair Symbicort and Singulair possible could be aggravated with mild exacerbation secondary to recent upper respiratory infection 5. Hyperlipidemia on Lipitor 20 with change 6. Tobacco use, counseled regarding permanent tobacco cessation 7. Transaminitis acute, new, patient would have hepatitis panel negative for acute hepatitis A, monitor liver tests, and abdominal ultrasound showing probable hemangioma, negative lipase, follow-up liver function tests 1 week 8. GI prophylaxis with Pepcid, DVT prophylaxis with Lovenox 9. Headache related to Nitropaste use, patient has hydrocodone and aspirin 10. Recent nail resection wedge on bilateral great toes on 02/11/2018, doing okay, short-term use of [place] medication dispensed 824, no new scripts given today or on discharge Plan - Discharge Summary New Discharge Prescriptions: New Aspirin 81 mg PO DAILY #30 chew Azithromycin [Zithromax] 0 mg PO DIRECTED #6 tab Continue Omalizumab [Xolair] 375 mg SQ Q14D Budesonide/Formoterol Fumarate [Symbicort 160-4.5 Mcg Inhaler] 2 puff INHALATION RT-BID Albuterol Sulfate [Proair Hfa] 1 - 2 puff INHALATION RT-Q6H PRN PRN Reason: Shortness Of Breath Montelukast [Singulair] 10 mg PO HS HYDROcodone/APAP 10-325MG [[place] 10-325] 1 tab PO TID PRN PRN Reason: Pain Atorvastatin [Lipitor] 20 mg PO HS Discharge Medication List Albuterol Sulfate [Proair Hfa] 1 - 2 puff INHALATION RT-Q6H PRN 02/12/18 [ History] Atorvastatin [Lipitor] 20 mg PO HS 02/12/18 [History] Budesonide/Formoterol Fumarate [Symbicort 160-4.5 Mcg Inhaler] 2 puff INHALATION RT-BID 02/12/18 [History] HYDROcodone/APAP 10-325MG [[place] 10-325] 1 tab PO TID PRN 02/12/18 [History] Montelukast [Singulair] 10 mg PO HS 02/12/18 [History] Omalizumab [Xolair] 375 mg SQ Q14D 02/12/18 [History] Aspirin 81 mg PO DAILY #30 chew 02/13/18 [Rx] Azithromycin [Zithromax] 0 mg PO DIRECTED #6 tab 02/13/18 [Rx] Follow up Appointment(s)/Referral(s): Marco Antonio Ohara MD [STAFF PHYSICIAN] - 1 Week Linda Zimmre MD [Primary Care Provider] - 1-2 days Patient Instructions/Handouts: Chest Pain (GEN) Discharge Disposition: HOME SELF-CARE
[2018-02-14] MEDS ORDERED: ASPIRIN 81 MG PO SCH (09:00)
== END 2018-02-13 14:50 | disposition home or self-care (01) ==
LOC: EC 10:38 → 3OBS 12:38
PROVIDERS: ADMIT Family Medicine; ATTEND Family Medicine
DX: R07.89 Other chest pain (principal); R06.09 Other forms of dyspnea; R61 Generalized hyperhidrosis; R42 Dizziness and giddiness; R11.2 Nausea with vomiting, unspecified; M94.0 Chondrocostal junction syndrome [Tietze]; J06.9 Acute upper respiratory infection, unspecified; R94.31 Abnormal electrocardiogram [ECG] [EKG]; I45.10 Unspecified right bundle-branch block; E78.5 Hyperlipidemia, unspecified; L50.1 Idiopathic urticaria; J45.30 Mild persistent asthma, uncomplicated; R74.0 Nonspecific elevation of levels of transaminase and lactic acid dehydrogenase [LDH]; R74.8 Abnormal levels of other serum enzymes; G44.40 Drug-induced headache, not elsewhere classified, not intractable; T46.3X5A Adverse effect of coronary vasodilators, initial encounter; Z79.899 Other long term (current) drug therapy; Z79.51 Long term (current) use of inhaled steroids; R73.03 Prediabetes; Z90.49 Acquired absence of other specified parts of digestive tract; F17.200 Nicotine dependence, unspecified, uncomplicated; Z83.3 Family history of diabetes mellitus; Z81.1 Family history of alcohol abuse and dependence
CPT/HCPCS: 99285; 96372 ×2; 96374; 96376; 36415; 94640 ×2; 85379; 80061; 80053; 80074; 82550; 82553; 83690; 83735; 84484; 85025; 85610; 85730; 83036; 71046; 76705; G0378 ×2; J1644 ×2; J2405 ×2